=== PATIENT | male | born 1935 | race Caucasian/White ===

== ENCOUNTER 2017-04-20 10:52 | Emergency (ER) | payer MEDICARE, OTHER ==
[~2017-04-20] VITALS: Ht 172.7 cm; Wt 76.0 kg
[~2017-04-20 10:52] MED LIST: FINA5TAB2 PO; GABA600T PO; LOVA20TA PO; PANT40TA3 PO; TEMA15CA PO
[2017-04-20 11:36] VITALS: BP 167/78; PULSE 62; RESP 22; TEMP 97.5; O2SAT 98
[2017-04-20] MEDS ORDERED: MORPHINE SULFATE 4 MG/ML INJ IV PUSH ONE (11:45)
[2017-04-20] MEDS ORDERED: GABA400C5 PO (12:05)
[2017-04-20 12:31] LABS: AUTOMATED NEUTROPHIL # 5.1 TH/MM3 (1.8-7.7); BASOPHIL # 0.1 TH/MM3 (0-0.2); BASOPHIL % 0.7 % (0.0-2.0); EOSINOPHIL # 0.2 TH/MM3 (0-0.4); EOSINOPHIL % 2.6 % (0.0-4.0); HEMATOCRIT 41.9 % (39.0-51.0); HEMO FLAGS DIFF FINAL; LYMPH % 21.8 % (9.0-44.0); LYMPHOCYTE # 1.6 TH/MM3 (1.0-4.8); MEAN CELL VOLUME 93.8 FL (80.0-100.0); MEAN CORPUSCULAR HEMOGLOBIN 31.4 PG (27.0-34.0); MEAN CORPUSCULAR HGB CONC 33.5 % (32.0-36.0); MONO % 8.1 % (0.0-8.0); NEUT % 66.8 % (16.0-70.0); PLATELET COUNT 281 TH/MM3 (150-450); RED BLOOD COUNT 4.47 MIL/MM3 (4.50-5.90); WHITE BLOOD COUNT 7.6 TH/MM3 (4.0-11.0)
[2017-04-20] MEDS ORDERED: HYDROmorphone HCL PF 0.5 MG/0.5 ML SYRINGE IV PUSH ONE (12:45)
[2017-04-20 12:48] LABS: ALT (GPT) 20 U/L (12-78); ANION GAP 10 MEQ/L (5-15); AST (GOT) 25 U/L (15-37); BICARBONATE 24.4 MEQ/L (21.0-32.0); BLOOD UREA NITROGEN 14 MG/DL (7-18); CHLORIDE 105 MEQ/L (98-107); GLOMERULAR FILTRATION RATE 72 ML/MIN (>89); POTASSIUM 4.5 MEQ/L (3.5-5.1); SODIUM (NA) 139 MEQ/L (136-145)
[2017-04-20 12:50] LABS: ALKALINE PHOSPHATASE 85 U/L (45-117); TOTAL BILIRUBIN ADULT 0.7 MG/DL (0.2-1.0)
[2017-04-20 13:17] LABS: APTT (PATIENT) 28.2 SEC (24.3-30.1); PROTHROMBIN TIME - PATIENT 10.7 SEC (9.8-11.6)
[2017-04-20 13:47] VITALS: BP 149/70; PULSE 46; RESP 23; O2SAT 99
[2017-04-20 16:11] VITALS: PULSE 60; RESP 18; O2SAT 95
[2017-04-20] MEDS ORDERED: ONDANSETRON HCL 4 MG/2 ML VIAL ONE (17:53)
--- NOTE | 2017-04-20 18:06 | PD.RAD ---
Post Procedure Progress Note Pre Procedure Diagnosis: (1) Neurogenic bladder Post Procedure Diagnosis: (1) Neurogenic bladder Procedure Date: Apr 20, 2017 Supervising Radiologist: Suleman Olguin Estimated blood loss: None Anesthesia: Local, Analgesia Plan of Activity Patient Condition: Fair Additional Comments: Suprapubic cahteter replaced without difficulty. catheter in good position draining urine. See PACS Report for procedural detail/treatment Suleman Olguin MD Apr 20, 2017 18:06
[2017-04-20 18:49] VITALS: BP 112/56; PULSE 76; RESP 18; O2SAT 94
[2017-04-20] MEDS ORDERED: CIPR-9 PO (19:01)
--- NOTE | 2017-04-20 19:02 | PD ---
HPI Chief Complaint: Complaint Time Seen by Provider: 11:06 Travel History International Travel<30 days: No Contact w/Intl Traveler<30days: No Traveled to known affect area: No History of Present Illness HPI Patient is a 81-year-old male who comes in complaining of pain to his groin area. He says he was trying of a bowel movement was straining when suddenly his suprapubic catheter fell out and he was paying on himself. He has a neurogenic bladder and has had the suprapubic catheter for about 2 years. He says around this time is when the pain to his penis and rectum started. He says he was feeling fine prior to having the bowel movement. He denies fever or chills. He has not had any skin rashes or sores. He denies nausea or vomiting. 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) Psychiatric: No Reproductive: No Respiratory: Yes Immunizations Current: Yes Migraines: No Renal Failure: No Seizures: No Sleep Apnea: Yes (no cpap since december) Ulcer: No Influenza Vaccination: Yes Past Surgical History Abdominal Surgery: Yes (Hernia repair) AICD: No Arteriovenous Shunt: No Cardiac Surgery: No Ear Surgery: No Endocrine Surgery: No Eye Surgery: No Genitourinary Surgery: Yes (SP cathetar) Gynecologic Surgery: No Insulin Pump: No Neurologic Surgery: No Oral Surgery: Yes (tonsillectomy) Pacemaker: No Thoracic Surgery: No Other Surgery: Yes (back surgery) Social History Alcohol Use: No Tobacco Use: No Substance Use: No Allergies-Medications (Allergen,Severity, Reaction): Coded Allergies: No Known Allergies (Verified Adverse Reaction, Unknown, 04/20/17) Reported Meds & Prescriptions Reported Meds & Active Scripts Active Gabapentin 600 Mg Tab 600 Mg PO QID Reported Gabapentin 400 Mg Cap 400 Cap PO TID Lovastatin 20 Mg Tab 20 Mg PO DAILY Finasteride 5 Mg Tab 5 Mg PO DAILY Do not crush. Temazepam 15 Mg Cap 15 Mg PO HS Review of Systems Except as stated in HPI: all other systems reviewed are Neg General / Constitutional: No: Fever, Chills HENT: No: Headaches, Lightheadedness Cardiovascular: No: Chest Pain or Discomfort Respiratory: No: Shortness of Breath Gastrointestinal: No: Nausea, Vomiting Genitourinary: Positive: Pelvic Pain Skin: No Rash, No Change in Pigmentation Neurologic: No: Weakness, Dizziness Physical Exam Narrative GENERAL: Awake and alert, in no acute distress. SKIN: Focused skin assessment warm/dry. No erythema or signs of infection. HEAD: Atraumatic. Normocephalic. EYES: Pupils equal and round. No scleral icterus. ENT: Mucous membranes pink and moist. NECK: Trachea midline. No JVD. CARDIOVASCULAR: Regular rate and rhythm. No murmur appreciated. RESPIRATORY: No accessory muscle use. Clear to auscultation. Breath sounds equal bilaterally. GASTROINTESTINAL: Abdomen soft, non-tender, nondistended. Stoma for suprapubic catheter present, no surrounding erythema or signs of infection. MUSCULOSKELETAL: No obvious deformities. No clubbing. No cyanosis. No edema. NEUROLOGICAL: Awake and alert. No obvious cranial nerve deficits. Motor grossly within normal limits. Normal speech. PSYCHIATRIC: Appropriate mood and affect; insight and judgment normal. Data Data Last Documented VS Vital Signs Date Time Temp Pulse Resp B/P (MAP) Pulse Ox O2 Delivery O2 Flow Rate FiO2 04/20/17 18:49 76 18 112/56 (74) 94 Room Air 04/20/17 11:36 97.5 Orders Orders Iv Access Insert/Monitor (04/20/17 11:34) Complete Blood Count With Diff (04/20/17 11:34) Comprehensive Metabolic Panel (04/20/17 11:34) Urinalysis - C+S If Indicated (04/20/17 11:34) Morphine Inj (Morphine Inj) (04/20/17 11:45) Hydromorphone Pf Inj (Dilaudid Pf Inj) (04/20/17 12:45) Act Partial Throm Time (Ptt) (04/20/17 12:58) Prothrombin Time / Inr (Pt) (04/20/17 12:58) Fentanyl Inj (Fentanyl Inj) (04/20/17 17:39) Ondansetron Inj (Zofran Inj) (04/20/17 17:53) Vital Signs (Adult) Q15MX2,Q30MX2 (04/20/17 18:04) Wound Care (04/20/17 18:04) ^ Dressings (04/20/17 18:04) Activity Bed Rest (04/20/17 18:04) Notify Dr: Other (04/20/17 18:04) Suprapubic Tube Placement (04/20/17 ) Labs Laboratory Tests Test 04/20/17 12:02 04/20/17 13:00 White Blood Count 7.6 TH/MM3 Red Blood Count 4.47 MIL/MM3 Hemoglobin 14.0 GM/DL Hematocrit 41.9 % Mean Corpuscular Volume 93.8 FL Mean Corpuscular Hemoglobin 31.4 PG Mean Corpuscular Hemoglobin Concent 33.5 % Red Cell Distribution Width 13.0 % Platelet Count 281 TH/MM3 Mean Platelet Volume 9.4 FL Neutrophils (%) (Auto) 66.8 % Lymphocytes (%) (Auto) 21.8 % Monocytes (%) (Auto) 8.1 % Eosinophils (%) (Auto) 2.6 % Basophils (%) (Auto) 0.7 % Neutrophils # (Auto) 5.1 TH/MM3 Lymphocytes # (Auto) 1.6 TH/MM3 Monocytes # (Auto) 0.6 TH/MM3 Eosinophils # (Auto) 0.2 TH/MM3 Basophils # (Auto) 0.1 TH/MM3 CBC Comment DIFF FINAL Differential Comment Blood Urea Nitrogen 14 MG/DL Creatinine 1.00 MG/DL Random Glucose 101 MG/DL Total Protein 7.0 GM/DL Albumin 3.5 GM/DL Calcium Level 8.9 MG/DL Alkaline Phosphatase 85 U/L Aspartate Amino Transf (AST/SGOT) 25 U/L Alanine Aminotransferase (ALT/SGPT) 20 U/L Total Bilirubin 0.7 MG/DL Sodium Level 139 MEQ/L Potassium Level 4.5 MEQ/L Chloride Level 105 MEQ/L Carbon Dioxide Level 24.4 MEQ/L Anion Gap 10 MEQ/L Estimat Glomerular Filtration Rate 72 ML/MIN Prothrombin Time 10.7 SEC Prothromb Time International Ratio 1.0 RATIO Activated Partial Thromboplast Time 28.2 SEC MDM Medical Decision Making Medical Screen Exam Complete: Yes Emergency Medical Condition: Yes Medical Record Reviewed: Yes Differential Diagnosis UTI versus suprapubic catheter displacement versus constipation Narrative Course Patient is a 81-year-old male who comes in after significant catheter fell out. Exam shows no infection around the catheter, no abnormality seen in his groin area. Attempts made to replace the suprapubic catheter, but there was a lot of resistance. I spoke with his urologist who suggested calling IR. IR was consulted for placement of the catheter. This was done without incident. He' ll be discharged with a prescription for Cipro. Advised to follow-up with his urologist. Advised to return to the ED as needed for any worsening symptoms. Diagnosis Primary Impression: Suprapubic catheter dysfunction Qualified Codes: T83.010A - Breakdown (mechanical) of cystostomy catheter, initial encounter Patient Instructions: General Instructions, How to Care for Your Suprapubic Catheter (ED) Additional Instructions: Take all of your antibiotic. Follow-up with your urologist. Return to the ED as needed for any worsening symptoms. Scripts Ciprofloxacin (Cipro) 500 Mg Tab 500 MG PO BID for Infection for 7 Days, #14 TAB 0 Refills Prov: Gardenia Swanson MD 04/20/17 Disposition: 01 DISCHARGE HOME Condition: Stable Gardenia Swanson MD Apr 20, 2017 19:02
[2017-04-20 19:18] LABS: BACTERIA, URINE MANY /hpf; BLOOD, URINE LARGE (NEG); GLUCOSE,URINE NEG (NEG); KETONE, URINE 40 mg/dL (NEG); MUCUS URINE FEW /lpf (OCC); NITRITE,URINE NEG (NEG); PH, URINE 6.5 (5.0-8.5)
[2017-04-20 19:21] LABS: COMMENT (UR) CATH-CULTURE IND; CULTURE IF INDICATED CATH CULTURE IND; URINE COLOR LIGHT-RED (YELLW/STRAW)
--- NOTE | 2017-04-21 12:22 | RADRPT ---
EXAM DATE/TIME: 04/20/2017 18:56 [facility] COMPARISON: No previous studies available for comparison. INDICATIONS : Patient's suprapubic catheter fell out, needs replaced. MEDICAL HISTORY : HTN Hyperlipedemia SURGICAL HISTORY : Spinal surgery ENCOUNTER: Initial ACUITY: 1 day PAIN SCORE: 8/10 LOCATION: lower quadrant FLUORO TIME: 1.0 minutes IMAGE SERIES: 1 CONTRAST: 20 cc Omnipaque 350 (iohexol) Suprapubic tube MEDICATION(S): 1.) 100 mcg fentanyl (Sublimaze) IV DEVICE(S): 1.) Chairez catheter 16FR PROCEDURE : 1. Ultrasound localization of the bladder. 2. Suprapubic catheter placement. 3. Conscious sedation with continuous EKG and oximetry monitoring. Clinical history: The patient had an existing suprapubic catheter in place which became dislodged. The patient arrived for replacement of a catheter through the existing tract. The risks, benefits and alternatives to the procedure were explained and verbal and written consent w as obtained. The site was prepped in sterile fashion. Full sterile technique was used, including ca p, mask, sterile gloves and gown and a large sterile sheet. Hand hygiene and 2% chlorhexidine and/or betadine/alcohol prep was utilized per protocol for cutaneous antisepsis. Sterile gel and sterile p robe cover were utilized for ultrasound guidance. The skin and subcutaneous tissues were infiltrated with local anesthetic solution. The existing track above the bladder was identified. The skin was anesthetized with 10 cc 1% lidocain e. A 14 [place] Chairez catheter was advanced through the existing tract and eventually manipulated with in the bladder. There was immediate return of a copious amount of urine. The balloon was inflated. Po sition within the bladder was confirmed. The patient tolerated the procedure well. Conscious sedation was performed with the prescribed dosages and duration as above in the presence of an independent trained radiology nurse to assist in the monitoring of the patient. EKG and oximetry remained stable throughout the procedure. The patient tolerated the procedure well and there were n o complications. The patient was sent to post anesthesia recovery in stable condition. CONCLUSION: Uncomplicated replacement of the suprapubic catheter. Suleman Olguin MD on April 21, 2017 at 10:06 Board Certified Radiologist. This report was verified electronically.
== END 2017-04-20 20:22 | disposition home or self-care (01) ==
LOC: NEPC 10:52
DX: T83.010A Breakdown (mechanical) of cystostomy catheter, initial encounter (principal); N31.9 Neuromuscular dysfunction of bladder, unspecified; I10 Essential (primary) hypertension; E78.00 Pure hypercholesterolemia, unspecified; M19.90 Unspecified osteoarthritis, unspecified site; F41.9 Anxiety disorder, unspecified; F32.9 Major depressive disorder, single episode, unspecified
CPT/HCPCS: 51102; 77003; 80053; 81001; 85025; 85610; 85730; 87077; 87086; 87186; 96374; 96375; 99284; C1769; J1170; J2270; J2405; J3010